=== PATIENT | female | born 1990 | race Caucasian/White ===

== ENCOUNTER 2020-07-27 19:16 | Emergency (ER) | payer OTHER ==
[~2020-07-27] VITALS: Ht 157.5 cm; Wt 74.7 kg
--- NOTE | 2020-07-27 20:38 | NUR ---
called pt to room from lobby
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
[2020-07-27 20:51] VITALS: BP 104/56
--- NOTE | 2020-07-27 21:14 | NUR ---
Patient/Caregiver given discharge instructions and they have confirmed that they understand the instructions. Patient ambulatory with steady gait.
== END 2020-07-27 21:30 | disposition home or self-care (01) ==
LOC: ED 21:20
DX: S43.102A Unspecified dislocation of left acromioclavicular joint, initial encounter (principal); S16.1XXA Strain of muscle, fascia and tendon at neck level, initial encounter; V49.09XA Driver injured in collision with other motor vehicles in nontraffic accident, initial encounter; Y93.89 Activity, other specified; Y92.89 Other specified places as the place of occurrence of the external cause; Y99.8 Other external cause status
CPT/HCPCS: 72050; 99284